=== PATIENT | female | born 1950 | race African-American/Black ===

== ENCOUNTER 2018-01-17 17:23 | Emergency (ER) | payer OTHER ==
[~2018-01-17] VITALS: Ht 160 cm; Wt 96.3 kg
[~2018-01-17 17:23] MED LIST: AMLODIPINE BESYL5 MG PO; FERROUS SULFAT325 MG PO; HUMALOG100 UNIT/2 SC; JANUMET 50/11 TABLET PO; LANTUS 3 M100 UNITS1 SC; LO-DOSE ASPIRIN81 M1 PO; MULTIPLE VITAM1 EACH PO; NORCO 5/3251 TABLET PO; PROAIR HFA8.5 GM IH; SERTRALINE HCL50 MG PO; SPIRIVA1 INHALATI IH; ST. JOSEPH ASPI81 MG PO; TESSALON PERLE100 MG PO; VALSARTAN-HCTZ1 EAC3 PO; VENTOLIN HFA18 GM IH; ZITHROMAX Z-PA250 MG PO; [UNRECOGNIZED DRUG - OTHER]
[2018-01-17 19:33] LABS: HEMOGLOBIN 11.1 G/DL (11.9-15.5); MCH 29.4 PG (29.0-34.0); MCHC 32.6 G/DL (30.0-36.0); MCV 89.9 FL (83-99); PLATELET COUNT 186 K/uL (156-360); RBC DIS.WIDTH-CV 14.3 % (11.8-14.6); RED BLOOD COUNT 3.78 M/uL (3.80-5.20); WHITE BLOOD COUNT 7.7 K/uL (4.1-10.2)
[2018-01-17 19:44] LABS: ALBUMIN 4.2 g/dL (3.2-4.8); CHLORIDE 110 mEq/L (99-109); POTASSIUM 4.8 mEq/L (3.7-5.4); SODIUM 143 mEq/L (136-147)
[2018-01-17 19:47] LABS: GLUCOSE 98 mg/dL (70-99); TOTAL PROTEIN 8.2 g/dL (6.4-8.3)
[2018-01-17 19:49] LABS: TOTAL BILIRUBIN 0.4 mg/dL (0.0-1.0)
[2018-01-17 19:50] LABS: ALKALINE PHOSPHATASE 83 IU/L (3-129); CREATININE 1.6 mg/dL (0.6-1.3); GFR ESTIMATE (CALCULATED) 42 mL/min/
[2018-01-17 19:51] LABS: UREA NITROGEN (BUN) 33 mg/dL (9-23)
[2018-01-17 19:52] LABS: AST (GOT) 24 IU/L (2-34)
[2018-01-17 19:53] LABS: ALT (GPT) 23 IU/L (3-49)
[2018-01-17 19:54] LABS: LIPASE 83 U/L (1.0-51.0)
[2018-01-17 19:58] LABS: APPEARANCE SL.HAZY ((CLEAR)); BILIRUBIN NEGATIVE; BLOOD NEGATIVE; COLOR YELLOW ((YELLOW)); GLUCOSE (STRIP) NEGATIVE; KETONES NEGATIVE; LEUKOCYTES NEGATIVE; NITRITE NEGATIVE; PROTEIN (STRIP) 30; UROBILINOGEN 0.2 MG/DL (0.2-1.0)
[2018-01-17 20:48] LABS: EPITHELIAL CELLS 2+ /HPF; RED BLOOD CELLS RARE /HPF (0-5); WHITE BLOOD CELLS RARE /HPF (0-5)
[2018-01-17 20:49] LABS: BACTERIA 1+ /HPF; HYALINE CASTS 0-5 /LPF; MUCUS 1+ /LPF; UCUL ADDED? NO
[2018-01-17 20:50] LABS: AMORPHOUS URATES CRYSTALS 1+
[2018-01-17 21:46] LABS: CHLORIDE 114 mEq/L (99-109); POTASSIUM 4.8 mEq/L (3.7-5.4); SODIUM 143 mEq/L (136-147)
[2018-01-17 21:48] LABS: GLUCOSE 95 mg/dL (70-99)
[2018-01-17 21:52] LABS: CREATININE 1.3 mg/dL (0.6-1.3); GFR ESTIMATE (CALCULATED) 53 mL/min/
[2018-01-17 21:53] LABS: UREA NITROGEN (BUN) 30 mg/dL (9-23)
[2018-01-17] MEDS ORDERED: MECLIZINE HCL25 MG PO (22:01)
[2018-01-17 22:20] VITALS: BP 148/96
== END 2018-01-17 22:21 | disposition home or self-care (01) ==
LOC: EME 17:23
PROVIDERS: Physician Assistant
DX: R42 Dizziness and giddiness (principal); E11.9 Type 2 diabetes mellitus without complications; Z79.4 Long term (current) use of insulin; I10 Essential (primary) hypertension; F32.9 Major depressive disorder, single episode, unspecified; J44.9 Chronic obstructive pulmonary disease, unspecified; G47.30 Sleep apnea, unspecified; Z90.49 Acquired absence of other specified parts of digestive tract; Z87.891 Personal history of nicotine dependence
CPT/HCPCS: 70450; 80048 91; 80053; 81003; 83690; 85027; 93005; 99281; 99285; J7030